=== PATIENT | male | born 1975 | race Caucasian/White ===

== ENCOUNTER 2019-10-11 15:03 | Emergency (ER) | payer SELFPAY ==
[~2019-10-11] VITALS: Ht 167.6 cm; Wt 77.1 kg
[2019-10-11 15:30] VITALS: Ht 167.6 cm; Wt 77.1 kg
[2019-10-11 16:36] VITALS: BP 114/77
== END 2019-10-11 16:36 | disposition home or self-care (01) ==
LOC: ED 15:03
DX: F07.81 Postconcussional syndrome (principal); Z98.890 Other specified postprocedural states
CPT/HCPCS: A4570